=== PATIENT | male | born 1940 | race Caucasian/White ===

== ENCOUNTER 2016-08-09 17:31 | Emergency (ER) | payer MEDICARE ==
[~2016-08-09] VITALS: Ht 177.8 cm; Wt 74.8 kg
[2016-08-09 17:33] VITALS: BP 141/84
[2016-08-09] MEDS ORDERED: FLUORESCEIN SODIUM OPHTH 1 EA STRIP ONE (18:10)
[2016-08-09] MEDS ORDERED: TETRACAINE HCL/PF 0.5% UD 2 ML BOTTLE ONE (18:10)
[2016-08-09] MEDS ORDERED: FLUORESCEIN SODIUM OPHTH 1 EA STRIP OP ONE (18:30)
[2016-08-09] MEDS ORDERED: TETRACAINE HCL/PF 0.5% UD 2 ML BOTTLE EACHEYE ONE (18:30)
[2016-08-09] MEDS ORDERED: GENTAMICIN OPTH OINT 0.3% 3.5 G TUBE OP ONE (19:00)
[2016-08-09] MEDS ORDERED: TDAP [DIPH/PERTUSSIS/TET] 0.5 ML VIAL IM ONE ×2 (19:00→19:04)
[2016-08-09] MEDS ORDERED: GENTAMICIN OPTH OINT 0.3% 3.5 G TUBE ONE (19:04)
== END 2016-08-09 19:14 | disposition home or self-care (01) ==
LOC: ER 17:34
DX: T15.02XA Foreign body in cornea, left eye, initial encounter (principal); I10 Essential (primary) hypertension; X58.XXXA Exposure to other specified factors, initial encounter; Y92.89 Other specified places as the place of occurrence of the external cause; Y93.89 Activity, other specified; Y99.8 Other external cause status
CPT/HCPCS: 90715; A4606; Z7610